=== PATIENT | female | born 1955 | race Caucasian/White ===

== ENCOUNTER 2020-12-12 07:55 | Emergency (ER) | payer OTHER ==
[2020-12-12 08:08] VITALS: BP 177/84; PULSE 90; TEMP 98; BMI 34.0
[2020-12-12] MEDS ORDERED: IBUPROFEN 600 MG TABLET (FP) PO ONE ×2 (08:18→08:22)
== END 2020-12-12 09:27 | disposition home or self-care (01) ==
LOC: JER 07:55
PROC: 2W3MX1Z Immobilization of Left Lower Extremity using Splint (ICD-10-PCS; principal; 2020-12-12)
DX: S82.832A Other fracture of upper and lower end of left fibula, initial encounter for closed fracture (principal); W01.0XXA Fall on same level from slipping, tripping and stumbling without subsequent striking against object, initial encounter
CPT/HCPCS: 73590-TC-LT-FY; 99283-25